=== PATIENT | female | born 1965 | race American Indian/Alaskan Native ===

== ENCOUNTER 2017-01-22 07:30 | Outpatient (CLI) | payer BC ==
--- NOTE | 2017-01-22 11:37 | XRay Report ---
RIGHT KNEE: Pain The bony architecture is intact without evidence of fracture or dislocation. No significant soft tissue abnormality is seen. IMPRESSION: Normal right knee.
== END 2017-01-22 07:31 | disposition home or self-care (01) ==
LOC: XRAY 07:30
PROVIDERS: ATTEND Orthopaedic Surgery
DX: M25.561 Pain in right knee (principal)

== ENCOUNTER 2017-02-05 09:58 | Outpatient (CLI) | payer BC ==
--- NOTE | 2017-02-06 15:48 | Magnetic Resonance Report ---
MRI of the right knee. History: Decreased range of motion, pain, swelling. Procedure: A multisequence multiplanar study was performed. Findings: There is a linear horizontal signal abnormality in the posterior horn of the medial meniscus. The anterior horn appears normal. The lateral meniscus is unremarkable. There is a moderate-sized joint effusion. The cruciate and collateral ligaments appear normal. No signal abnormality is are seen in the bony structures. Impression: Horizontal tear of the posterior horn of the meniscus with moderate joint effusion.
== END 2017-02-05 09:59 | disposition home or self-care (01) ==
LOC: MRI 09:58
PROVIDERS: ATTEND Orthopaedic Surgery
DX: M25.561 Pain in right knee (principal); M25.461 Effusion, right knee
CPT/HCPCS: 73721

== ENCOUNTER 2017-03-06 08:52 | Day surgery (SDC) | payer BC ==
[~2017-03-06 08:52] MED LIST: ANCEF/STERILE WATER 2 GM/20 ML IV NR
--- NOTE | 2017-03-06 10:06 | Anesthesia Consultation ---
Anesthesia Consult and Med Hx Date of service: 03/06/17 - Airway Anesthetic Teeth Evaluation: Good ROM Head & Neck: Adequate Mental/Hyoid Distance: Adequate Mallampati Class: Class I Intubation Access Assessment: Good - Pulmonary Exam CTA: Yes - Cardiac Exam Cardiac Exam: RRR - Pre-Operative Health Status ASA Pre-Surgery Classification: ASA3 Proposed Anesthetic Plan: General - Pre-Anesthesia Comment Pre-Anesthesia Comments: Stress induced anaphalactic rxn, use epipen once - Pulmonary Hx Smoking: Yes (1-2 cigarettes per week, occasional due to stress) Hx Asthma: No COPD: No Hx Pneumonia: No Hx Sleep Apnea: No (UMA PRE SCREEN LOW RISK) - Cardiovascular System Hx Hypertension: No Hx Angina: Yes (March. full cardiac work up & cleared. r/t gerd) - Central Nervous System Hx Neuromuscular Disorder: No Hx Psychiatric Problems: No - Endocrine Hx End Stage Renal Disease: No Hx Insulin Dependent Diabetes: No Hx Non-Insulin Dependent Diabetes: No Hx Thyroid Disease: No - Hematic Hx Anemia: No Hx Sickle Cell Disease: No - Other Systems Hx Alcohol Use: Yes (occ) Hx Cancer: No Hx Obesity: Yes (BMI 42.8) - Additional Comments Anesthesia Medical History Comments: NAC
--- NOTE | 2017-03-06 10:06 | Anesthesia Day of Surgery ---
Anesthesia Day of Surgery - Day of Surgery Patient Examined: Yes Patient H&P Reviewed: Yes Patient is NPO: Yes
[2017-03-06 10:14] LABS: Bilirubin,Urine NEG (Negative); Blood,Urine NEG (Negative); Ketones,Urine NEG (Negative); Leukocyte Esterase,Urine NEG (Negative); Mucus,Urine 1+ /HPF; Nitrite,Urine NEG (Negative); Protein,Urine <15 mg/dL mg/dL (Negative)
[2017-03-06 10:30] LABS: Basophils % (Auto) 0.8 % (0.0-1.8); Eosinophils % (Auto) 1.4 % (0.0-4.3); Hematocrit 40.1 % (30.3-42.9); Hemoglobin 12.8 gm/dl (10.1-14.3); Mean Corpuscular HGB Conc 32 % (30-34); Mean Corpuscular Volume 76 fl (79-97); Platelet Count 266 K/mm3 (140-440); Red Blood Count 5.26 M/mm3 (3.65-5.03); Red Cell Distribution Width 16.4 % (13.2-15.2); White Blood Count 6.5 K/mm3 (4.5-11.0)
[2017-03-06 10:43] LABS: Alanine Aminotransferase 11 units/L (7-56); Albumin 3.8 g/dL (3.9-5); Albumin/Globulin Ratio 1.1 %; Alkaline Phosphatase 97 units/L (35-129); Anion Gap 15 mmol/L; BUN/Creatinine Ratio 18.57; Blood Urea Nitrogen 13 mg/dL (7-17); Calcium 8.5 mg/dL (8.4-10.2); Carbon Dioxide 23 mmol/L (22-30); Chloride 103.8 mmol/L (98-107); Glucose 93 mg/dL (65-100); Potassium 4.2 mmol/L (3.6-5.0); Sodium 138 mmol/L (137-145); Total Protein 7.3 g/dL (6.3-8.2)
[2017-03-06 10:51] LABS: Mean Corpuscular Hemoglobin 24 pg (28-32)
[2017-03-06] MEDS ORDERED: PEPCID PO NR (11:00)
[2017-03-06] MEDS ORDERED: LACTATED RINGERS 1,000 ML IV SCH (11:00)
[2017-03-06] MEDS ORDERED: VERSED IV NR (11:00)
--- NOTE | 2017-03-06 11:00 | XRay Report ---
ROUTINE CHEST, TWO VIEWS: HISTORY: Preoperative evaluation. The trachea, heart, mediastinal contour, lung yarbrough and bony thorax are unremarkable. IMPRESSION: Unremarkable chest x-ray.
[2017-03-06] MEDS ORDERED: SUBLIMAZE ONE (11:50)
[2017-03-06] MEDS ORDERED: XYLOCAINE MPF 2% ONE (11:50)
[2017-03-06] MEDS ORDERED: DIPRIVAN 10 MG/ML IV ONE (11:50)
[2017-03-06] MEDS ORDERED: MARCAINE-EPI/PF 0.5%-1:200,000 INFILTRATI ONE (12:01)
[2017-03-06] MEDS ORDERED: ZOFRAN ONE (12:40)
[2017-03-06] MEDS ORDERED: DECADRON ONE (12:41)
[2017-03-06] MEDS ORDERED: DEPO-MEDROL ONE (13:10)
[2017-03-06] MEDS ORDERED: DEPO-MEDROL INTRA-ARTI ONE (13:14)
[2017-03-06] MEDS ORDERED: MARCAINE-EPI/PF 0.5%-1:200,000 IJ ONE (13:14)
[2017-03-06] MEDS: DILAUDID IV PRN ×7 (13:50→14:45)
[2017-03-06] MEDS ORDERED: DILAUDID ONE (13:51)
--- NOTE | 2017-03-06 14:12 | Procedure Note ---
Date of procedure: 03/06/17 Pre-op diagnosis: lateral meniscus tear right knee Post-op diagnosis: same Procedure: Arthroscopy right knee with partial lateral meniscectomy and abrasion chondroplasty Indications A 51-year-old female who complains of right knee pain and swelling off and on for the last 2 months patient tried conservative treatment with no relief in her symptoms a preoperative MRI scan was done showing a possible tear of the lateral meniscus Procedure Patient was brought to the OR and placed in the or table in supine position following induction and intubation by anesthesia the patient's right lower extremity was placed in a leg pulliam was followed by routine prep and drape. Timeout procedure was done to identify the patient and the proper operative site. Stab wounds made in the routine fashion INTRODUCTION OF ARTHROSCOPE AND INSUFFLATION OF THE JOINT WITH NORMAL SALINE SOLUTION EXAMINATION REVEALED THE PATIENT TO HAVE THE 3 CHONDROMALACIA OF THE LATERAL TIBIAL PLATEAU ALL WITH A RADIAL FLAP TEAR NOTED IN THE LATERAL MENISCUS THE OTHER COMPARTMENTS WERE EXPLORED THAT BEING THE MEDIAL AND THE PATELLOFEMORAL JOINT BUT MAINLY HER SYMPTOMS PREOPERATIVELY POINTED TO THE LATERAL MENISCUS AND HERE IN THIS LOCATION WE FOUND TREATED BOTH THE meniscal tear and the chondromalacia. Combination of shaver and basket forceps were used to debride the articular and meniscal cartilage back to healthier appearing tissue. All illness the wound was copiously irrigated the stab wounds were repaired using 3-0 nylon 80 mg of Depo-Medrol along with 10 mL of Marcaine were injected postoperatively into the knee joint dressings were applied the patient tolerated the procedure there complications and sent to postanesthesia recovery in a stable condition Anesthesia: MARGARET Surgeon: JESENIA MOSQUEDA Estimated blood loss: minimal Pathology: none Specimen disposition: discarded Condition: stable Disposition: PACU
[2017-03-06] MEDS ORDERED: NORCO 7.5/325 PO PRN (14:14)
--- NOTE | 2017-03-06 14:42 | Post Anesthesia Evaluation ---
- Post Anesthesia Evaluation Patient Participated: Yes Airway Patent: Yes Stable Respiratory Function: Yes Nausea/Vomiting: No Temp > 96.8F: Yes Pain Manageable: Yes Adequeate Hydration: Yes Anesthesia Complications: No
[2017-03-06] MEDS ORDERED: TORADOL IV ONE (15:00)
[2017-03-06 17:01] VITALS: BP 113/71
== END 2017-03-06 16:39 | disposition home or self-care (01) ==
LOC: OR 08:52
PROVIDERS: ATTEND Orthopaedic Surgery
DX: S83.281A Other tear of lateral meniscus, current injury, right knee, initial encounter (principal); F17.210 Nicotine dependence, cigarettes, uncomplicated; E66.9 Obesity, unspecified; Z68.41 Body mass index [BMI] 40.0-44.9, adult; Z72.89 Other problems related to lifestyle; X58.XXXA Exposure to other specified factors, initial encounter
CPT/HCPCS: 29881; 36415; 71020; 80053; 81001; 81025; 85025; 97161; J0690; J1030; J1100; J1170; J1885; J2250; J2405; J2704; J3010; J7120

== ENCOUNTER 2017-03-08 05:08 | Emergency (ER) | payer BC ==
[2017-03-08 05:25] VITALS: BP 155/85
[2017-03-08 06:31] LABS: Basophils % (Auto) 0.6 % (0.0-1.8); Eosinophils % (Auto) 0.2 % (0.0-4.3); Hematocrit 37.8 % (30.3-42.9); Hemoglobin 11.8 gm/dl (10.1-14.3); Mean Corpuscular HGB Conc 31 % (30-34); Mean Corpuscular Volume 77 fl (79-97); Platelet Count 277 K/mm3 (140-440); Red Blood Count 4.94 M/mm3 (3.65-5.03); Red Cell Distribution Width 16.1 % (13.2-15.2); White Blood Count 8.4 K/mm3 (4.5-11.0)
[2017-03-08 06:33] LABS: Mean Corpuscular Hemoglobin 24 pg (28-32)
[2017-03-08 06:40] LABS: Anion Gap 12 mmol/L; Blood Urea Nitrogen 12 mg/dL (7-17); Calcium 8.9 mg/dL (8.4-10.2); Carbon Dioxide 28 mmol/L (22-30); Chloride 102.7 mmol/L (98-107); Glucose 97 mg/dL (65-100); Potassium 4.7 mmol/L (3.6-5.0); Sodium 138 mmol/L (137-145)
--- NOTE | 2017-03-08 10:06 | Emergency Department Report ---
ED General Adult HPI - General Chief complaint: Wound/Laceration Stated complaint: RT KNEE PAIN W/ BLEEDING Time Seen by Provider: 03/08/17 09:55 Source: patient Mode of arrival: Ambulatory Limitations: Physical Limitation - History of Present Illness Initial comments: Symptoms a 51-year-old female who is here status post knee surgery on . She complains of swelling and pain to the knee. She noticed some drainage from the wound this morning. No fevers chills nausea vomiting. She has some pain with flexion. She has been using crutches and pain medications. -: Gradual Location: lower extremity Radiation: non-radiation Severity scale (0 -10): 4 Quality: aching Consistency: constant Improves with: other (removal of dressing) Associated Symptoms: denies other symptoms. denies: chest pain, cough, nausea/ vomiting, syncope, weakness Treatments Prior to Arrival: none - Related Data Home Medications Medication Instructions Recorded Confirmed Last Taken Fluticasone Propionate [Flonase] 1 spray INNOSTRIL PRN PRN 07/25/14 03/06/17 09:00 Levocetirizine Dihydrochloride 1 tab PO PRN PRN 07/25/14 03/06/17 02/28/17 09:00 [Xyzal] Ranitidine HCl [Ranitidine] 1 tab PO PRN PRN 07/25/14 03/06/17 02/28/17 09:00 Epipen (Nf) 0.3 mg SUB-Q PRN PRN 08/21/16 03/05/17 07/09/16 Ibuprofen [Motrin] 800 mg PO Q8HR PRN 03/05/17 03/06/17 03/03/17 08:00 Montelukast [Singulair] 10 mg PO PRN PRN 03/05/17 03/06/17 02/28/17 09:00 Previous Rx's Medication Instructions Recorded Last Taken Type HYDROcodone/APAP 7.5-325 [[place] 1 each PO Q6HR PRN #30 tablet 03/06/17 Unknown Rx 7.5-325 mg TAB] oxyCODONE /ACETAMINOPHEN [Percocet 1 tab PO Q6HR PRN #20 tablet 03/08/17 Unknown Rx 5/325] Allergies Allergy/AdvReac Type Severity Reaction Status Date / Time bacitracin AdvReac Anaphylaxis Verified 07/25/14 13:23 [From Neosporin ([id number])] bacitracin zinc AdvReac Anaphylaxis Verified 07/25/14 13:23 [From Neosporin ([id number])] neomycin sulfate AdvReac Anaphylaxis Verified 07/25/14 13:23 [From Neosporin ([id number])] polymyxin B AdvReac Anaphylaxis Verified 07/25/14 13:23 [From Neosporin ([id number])] shellfish derived AdvReac Anaphylaxis Verified 07/25/14 13:23 Sulfa (Sulfonamide AdvReac Anaphylaxis Verified 07/25/14 13:23 Antibiotics) ED Review of Systems ROS: Stated complaint: RT KNEE PAIN W/ BLEEDING Other details as noted in HPI Comment: All other systems reviewed and negative Constitutional: no symptoms reported Musculoskeletal: as per HPI, joint swelling. denies: back pain, myalgia ED Past Medical Hx - Past Medical History Hx Hypertension: No Hx Congestive Heart Failure: No Hx Diabetes: No Hx GERD: Yes Hx Sickle Cell Disease: No Hx Asthma: No Hx COPD: No Hx HIV: No - Surgical History Hx Cholecystectomy: Yes Hx Appendectomy: Yes Hx Breast Surgery: Yes (BREAST REDUCTION) Additional Surgical History: GASTRIC BYPASS - Social History Smoking Status: Never Smoker Substance Use Type: None - Medications Home Medications: Home Medications Medication Instructions Recorded Confirmed Last Taken Type Fluticasone Propionate [Flonase] 1 spray INNOSTRIL PRN PRN 07/25/14 03/06/17 09:00 History Levocetirizine Dihydrochloride 1 tab PO PRN PRN 07/25/14 03/06/17 02/28/17 09: 00 History [Xyzal] Ranitidine HCl [Ranitidine] 1 tab PO PRN PRN 07/25/14 03/06/17 02/28/17 09:00 History Epipen (Nf) 0.3 mg SUB-Q PRN PRN 08/21/16 03/05/17 07/09/16 History Ibuprofen [Motrin] 800 mg PO Q8HR PRN 03/05/17 03/06/17 03/03/17 08:00 History Montelukast [Singulair] 10 mg PO PRN PRN 03/05/17 03/06/17 02/28/17 09:00 History HYDROcodone/APAP 7.5-325 [[place] 1 each PO Q6HR PRN #30 tablet 03/06/17 Unknown Rx 7.5-325 mg TAB] oxyCODONE /ACETAMINOPHEN [Percocet 1 tab PO Q6HR PRN #20 tablet 03/08/17 Unknown Rx 5/325] ED Physical Exam - General Limitations: Physical Limitation General appearance: alert - Head Head exam: Present: atraumatic - Eye Eye exam: Present: normal appearance - Respiratory Respiratory exam: Present: normal lung sounds bilaterally. Absent: respiratory distress - Cardiovascular Cardiovascular Exam: Present: regular rate, normal rhythm. Absent: systolic murmur, diastolic murmur, rubs, gallop - Extremities Exam Extremities exam: Present: full ROM (there is no evidence of infection redness erythema over the joint), tenderness, normal capillary refill, joint swelling. Absent: pedal edema - Neurological Exam Neurological exam: Present: alert, altered, oriented X3 - Skin Skin exam: Present: warm, dry, intact ED Course Vital Signs 03/08/17 03/08/17 05:17 10:15 Temperature 98.3 F Pulse Rate 71 Respiratory 14 18 Rate Blood Pressure 155/85 Blood Pressure 155/85 [Left] O2 Sat by Pulse 100 Oximetry ED Medical Decision Making - Lab Data Result diagrams: 03/08/17 06:07 03/08/17 06:07 - Medical Decision Making Patient is 51-year-old female with recent arthroscopic knee surgery here with complaint of knee pain. No evidence of infection. There is some slight drainage from the wound itself but I do not suspect any sort of infection. She is mildly tender over the joint itself. White count normal. Plan ultrasound for DVT. Negative DVT study. Discussed case with Dr. Anaya and plan to have patient follow-up as as scheduled outpatient Likely hematoma into the joint. Critical care attestation.: If time is entered above; I have spent that time in minutes in the direct care of this critically ill patient, excluding procedure time. ED Disposition Clinical Impression: Hemarthrosis following procedure Disposition: TO HOME OR SELFCARE Is pt being admited?: No Does the pt Need Aspirin: No Condition: Stable Instructions: Knee Pain (ED) Additional Instructions: Follow-up with Dr. Anaya as planned on Friday. Prescriptions: oxyCODONE /ACETAMINOPHEN [Percocet 5/325] 1 tab PO Q6HR PRN #20 tablet PRN Reason: Pain Referrals: PRIMARY CARE, [Primary Care Provider] - 3-5 Days
[2017-03-08] MEDS ORDERED: MORPHINE IM ONE (10:16)
== END 2017-03-08 13:31 | disposition home or self-care (01) ==
LOC: ED 05:08
DX: M25.061 Hemarthrosis, right knee (principal); K21.9 Gastro-esophageal reflux disease without esophagitis; Z90.49 Acquired absence of other specified parts of digestive tract; Z98.890 Other specified postprocedural states; Z88.8 Allergy status to other drugs, medicaments and biological substances
CPT/HCPCS: 36415; 80048; 85025; 93971; 96372; 99284; J2270

== ENCOUNTER 2017-09-10 07:07 | Outpatient (CLI) | payer BC ==
--- NOTE | 2017-09-10 09:44 | Mammography Report ---
BILATERAL MAMMOGRAM with CAD: HISTORY:Cancer screening. Comparison study is dated June 26, 2016. FINDINGS: The breasts are almost entirely fat (<25% glandular). No mass, distortion, suspicious calcification, or skin change is seen. IMPRESSION: Negative mammogram. There is no mammographic evidence of malignancy. RECOMMENDATION: Follow-up per ACS guidelines. BI-RADS CATEGORY: 1 = Negative ACR BI-RADS MAMMOGRAPHIC CODES: 0 = Needs additional imaging evaluation; 1 = Negative; 2 = Benign; 3 = Probably benign; 4 = Suspicious; 5 = Malignant; 6 = Known biopsy-proven malignancy COMMENT: 1. Dense breast tissue, i.e., adenosis, fibrocystic changes, etc., may obscure an underlying neoplasm. 2. Approximately 10% of cancers are not detected with mammography. 3. A negative mammography report should not delay biopsy if a clinically suspicious mass is present. COMMENT: Patient follow-up letters are generated in [employer].
== END 2017-09-10 07:08 | disposition home or self-care (01) ==
LOC: MAMMO 07:07
PROVIDERS: ATTEND Obstetrics & Gynecology
DX: Z12.31 Encounter for screening mammogram for malignant neoplasm of breast (principal); I10 Essential (primary) hypertension
CPT/HCPCS: 77067

== ENCOUNTER 2017-11-19 10:28 | Outpatient (CLI) | payer BC ==
--- NOTE | 2017-11-19 12:30 | XRay Report ---
Left knee 3 views: History: Pain in left knee. Findings: Narrowing of the medial and patellofemoral compartment region. Sclerotic articular surfaces with degenerative changes. No fracture. No joint effusion or soft tissue calcification. Impression: Degenerative changes left knee.
== END 2017-11-19 10:29 | disposition home or self-care (01) ==
LOC: XRAY 10:28
PROVIDERS: ATTEND Orthopaedic Surgery
DX: M17.12 Unilateral primary osteoarthritis, left knee (principal)

== ENCOUNTER 2017-12-12 07:40 | Outpatient (CLI) | payer BC ==
[2017-12-12 08:04] LABS: Basophils # (Auto) 0.1 K/mm3 (0.0-0.1); Basophils % (Auto) 1.3 % (0.0-1.8); Eosinophils # (Auto) 0.1 K/mm3 (0.0-0.4); Eosinophils % (Auto) 1.3 % (0.0-4.3); Hematocrit 35.5 % (30.3-42.9); Hemoglobin 11.5 gm/dl (10.1-14.3); Lymphocytes # (Auto) 1.8 K/mm3 (1.2-5.4); Lymphocytes % (Auto) 34.5 % (13.4-35.0); Mean Corpuscular HGB Conc 32 % (30-34); Mean Corpuscular Volume 74 fl (79-97); Monocytes # (Auto) 0.3 K/mm3 (0.0-0.8); Monocytes % (Auto) 6.5 % (0.0-7.3); Platelet Count 227 K/mm3 (140-440); Red Blood Count 4.78 M/mm3 (3.65-5.03); Red Cell Distribution Width 16.1 % (13.2-15.2)
[2017-12-12 08:20] LABS: Mean Corpuscular Hemoglobin 24 pg (28-32)
[2017-12-12 08:31] LABS: Alanine Aminotransferase 8 units/L (7-56); Albumin 3.9 g/dL (3.9-5); BUN/Creatinine Ratio 11; Blood Urea Nitrogen 9 mg/dL (7-17); Chol/HDL Ratio 2.28 %; HDL Cholesterol 56 mg/dL (40-59); Hemolysis Index 2; LDL Cholesterol,Direct 73 mg/dL (50-130)
== END 2017-12-12 07:41 | disposition home or self-care (01) ==
LOC: LAB 07:40
DX: Z00.01 Encounter for general adult medical examination with abnormal findings (principal); R79.89 Other specified abnormal findings of blood chemistry; I10 Essential (primary) hypertension; K21.9 Gastro-esophageal reflux disease without esophagitis; Z79.899 Other long term (current) drug therapy
CPT/HCPCS: 36415; 80053; 80061; 84443; 85025

== ENCOUNTER 2018-06-09 10:41 | Outpatient (CLI) | payer BC ==
[2018-06-09 11:21] LABS: INR 2.64 (0.87-1.13)
== END 2018-06-09 10:42 | disposition home or self-care (01) ==
LOC: LAB 10:41
PROVIDERS: ATTEND Internal Medicine
DX: R79.1 Abnormal coagulation profile (principal); I10 Essential (primary) hypertension; K21.9 Gastro-esophageal reflux disease without esophagitis; Z88.1 Allergy status to other antibiotic agents
CPT/HCPCS: 36415; 85610

== ENCOUNTER 2018-06-24 10:54 | Outpatient (CLI) | payer BC ==
--- NOTE | 2018-06-30 14:08 | Vascular Lab Report ---
Left Lower Extremity Venous Duplex Study: Reason for Exam: Left lower extremity deep venous thrombosis. Comments on the Right: A limited duplex study was done of the proximal veins of the right lower extremity. All veins visualized are freely compressible without evidence of internal echogenicity. Flow is spontaneous and phasic throughout. No evidence of acute or chronic thrombus is seen in any of the vessels visualized. Comments on the Left: A stent is partially visible in the external iliac and common femoral veins. There is chronic recanalized thrombus extending from the deep femoral vein into the popliteal and tibial veins as well as a gastrocnemius vein. The remaining veins visualized are freely compressible without evidence of internal echogenicity. Spontaneous and phasic flow is present proximally. Impression: Evidence of an iliac vein stent on the left. Chronic recanalized thrombus involving the deep femoral vein as well as the popliteal and tibial veins of the left lower extremity. No evidence of acute deep venous thrombosis in the left lower extremity.
== END 2018-06-24 10:55 | disposition home or self-care (01) ==
LOC: VAS 10:54
PROVIDERS: ATTEND Radiology Diagnostic Radiology
DX: I26.99 Other pulmonary embolism without acute cor pulmonale (principal); I80.02 Phlebitis and thrombophlebitis of superficial vessels of left lower extremity; I10 Essential (primary) hypertension; K21.9 Gastro-esophageal reflux disease without esophagitis; E66.9 Obesity, unspecified; F17.290 Nicotine dependence, other tobacco product, uncomplicated; Z90.49 Acquired absence of other specified parts of digestive tract

== ENCOUNTER 2018-09-11 10:52 | Outpatient (CLI) | payer BC ==
--- NOTE | 2018-09-11 14:39 | Mammography Report ---
BILATERAL DIGITAL SCREENING MAMMOGRAM with CAD: 09/11/18 10:52:00 CLINICAL: Routine screening. COMPARISON:09/10/17 FINDINGS: The breasts are almost entirely fatty. No mass, architectural distortion or suspicious calcifications. IMPRESSION: No mammographic evidence of malignancy. BI-RADS CATEGORY: 1 - - Negative RECOMMENDATION: Routine mammographic screening in one year. COMMENT: Patient follow-up letters are generated by our [employer] application.
== END 2018-09-11 10:53 | disposition home or self-care (01) ==
LOC: MAMMO 10:52
PROVIDERS: ATTEND Internal Medicine
DX: Z12.31 Encounter for screening mammogram for malignant neoplasm of breast (principal); I10 Essential (primary) hypertension; E66.9 Obesity, unspecified; K21.9 Gastro-esophageal reflux disease without esophagitis; M19.90 Unspecified osteoarthritis, unspecified site; Z90.49 Acquired absence of other specified parts of digestive tract; Z87.891 Personal history of nicotine dependence
CPT/HCPCS: 77067

== ENCOUNTER 2018-09-23 06:59 | Outpatient (CLI) | payer BC ==
[2018-09-23 13:32] LABS: Blood Urea Nitrogen 11 mg/dL (7-17)
--- NOTE | 2018-09-23 15:47 | Cat Scan Report ---
CTA CHEST INDICATION: Shortness of breath. History of PE. COMPARISON: 05/25/2018 chest CTA. FINDINGS: Chest CTA performed following intravenous administration of 100 cc of Omnipaque 350. Rotational MIP's also obtained. Though peak pulmonary arterial opacification somewhat technically suboptimal, there appears to have been interval resolution of large right main pulmonary arterial filling defect. Though pulmonary arterial branch opacification somewhat suboptimal, no definite suspicious filling defects suspected, to the extent assessed. No aortic aneurysm or dissection. Patent central airway. No size significant adenopathy. Normal heart size. No effusions. Normal imaged thyroid. Clear lungs. Nonspecific distal esophageal wall prominence/thickening, not excluded for gastroesophageal reflux and/or hiatal hernia, amongst others. Numerous upper abdominal postsurgical changes, including cholecystectomy and gastric bypass again noted. Few nonobstructing left upper renal calcifications measuring up to 0.4 cm as on axial image 115, series 2. Mild multilevel spinal degenerative changes spurring, including lower cervical. A subtle 5 cm posterior mid back subcutaneous lipoma may again be noted, axial image 60. CONCLUSION: 1. No acute significant chest CT abnormality on this somewhat limited exam with resolution of pulmonary embolism since May 2018, in so far assessed. 2. Various other findings as in the imaged upper abdomen. Thank you for the opportunity to participate in this patient's care.
--- NOTE | 2018-09-28 09:47 | Vascular Lab Report ---
FINAL REPORT EXAM: US ARTERIAL LOWER EXTREMITY UNILATERAL LEFT HISTORY: Follow-up lower extremity deep venous thrombosis. TECHNIQUE: Grayscale, color flow and Doppler waveform imaging of the deep venous structures of the l eft lower extremity was performed Comparison: Venous ultrasound lower extremities dated May 25, 2018. FINDINGS: Left lower extremity: There is evidence of a stent in the distal left external iliac vein. There is demonstration of normal compression and normal phasic flow in the deep venous structures of the left lower extremity from the common femoral vein to the popliteal vein. There is demonstration of flow in the greater saphenous vein near the confluence with the common femo ral vein. There is demonstration of flow in the posterior tibial vein IMPRESSION: 1. No ultrasound evidence of acute deep venous thrombosis left lower extremity. 2. Stent in the distal left external iliac vein.
== END 2018-09-23 07:00 | disposition home or self-care (01) ==
LOC: CT 06:59
PROVIDERS: ATTEND Radiology Diagnostic Radiology
DX: I80.02 Phlebitis and thrombophlebitis of superficial vessels of left lower extremity (principal); I26.99 Other pulmonary embolism without acute cor pulmonale; M47.812 Spondylosis without myelopathy or radiculopathy, cervical region; I10 Essential (primary) hypertension; Z87.891 Personal history of nicotine dependence
CPT/HCPCS: 36415; 71275; 82565; 84520; 93971; Q9967

== ENCOUNTER 2018-09-30 07:22 | Outpatient (CLI) | payer BC | END 2018-09-30 07:23 | disposition home or self-care (01) | LOC: ECHO 07:22 | PROVIDERS: ATTEND Internal Medicine | DX: I11.9 Hypertensive heart disease without heart failure (principal); Z90.49 Acquired absence of other specified parts of digestive tract; E66.9 Obesity, unspecified; K21.9 Gastro-esophageal reflux disease without esophagitis; M19.90 Unspecified osteoarthritis, unspecified site; Z86.718 Personal history of other venous thrombosis and embolism; Z87.891 Personal history of nicotine dependence | CPT/HCPCS: 93306 ==

== ENCOUNTER 2018-10-19 12:57 | Outpatient (CLI) | payer BC ==
--- NOTE | 2018-10-19 23:00 | XRay Report ---
FINAL REPORT EXAM: XR KNEE 4+V RT HISTORY: WEIGHTBEARING AP AND PA VIEWS, LATERAL AND [place] ON TABLE, PAIN TECHNIQUE: Four views of the right knee PRIORS: None. FINDINGS: The bones are normally aligned and mineralized. The medial and lateral joint spaces appear well-prese rved. There is moderate narrowing of the patellofemoral joint with associated osteophyte formation. T here is no evidence of acute fracture. The soft tissues are unremarkable. IMPRESSION: Osteoarthrosis of the patellofemoral joint. No evidence of acute fracture or subluxation.
--- NOTE | 2018-10-20 06:43 | Magnetic Resonance Report ---
FINAL REPORT PROCEDURE: MR LE JOINT RT WO CON TECHNIQUE: Magnetic resonance imaging of the RIGHT knee was performed using standard pulse sequences HISTORY: PAIN IN KNEE COMPARISON: No prior studies are available for comparison. FINDINGS: Medial meniscus: Normal. Lateral meniscus: There is a tear through the anterior horn of lateral meniscus extending to the supe rior articulating surface. Anterior cruciate ligaments: No signal of the anterior cruciate ligament is noted on this study, this is consistent with chronic tear of the anterior cruciate ligament. Posterior cruciate ligament: There is increased signal in the superior insertion of the posterior cru ciate ligament consistent with partial tear. Medial collateral ligament: Normal. Iliotibial band: Normal. Lateral collateral ligamentous complex: Normal. Medial patellar retinaculum: Normal. Lateral patellar retinaculum: Normal. Marrow signal: Normal. Chondral defects: None. Patellofemoral joint: Normal. Joint effusion: None. Mass lesion: None. Popliteal cyst: None. Soft tissues: Normal. IMPRESSION: There is a tear in the anterior horn of the lateral meniscus extending to the superior articulating s urface. A partial tear of the superior insertion of the posterior cruciate ligament is identified. No signal in the anterior cruciate ligament region is noted. This may be consistent with a chronic te ar previous injury, correlation with clinical history is recommended.
== END 2018-10-19 12:58 | disposition home or self-care (01) ==
LOC: MRI 12:57
PROVIDERS: ATTEND Orthopaedic Surgery
DX: S83.282A Other tear of lateral meniscus, current injury, left knee, initial encounter (principal); M17.11 Unilateral primary osteoarthritis, right knee; I10 Essential (primary) hypertension; E66.9 Obesity, unspecified; K21.9 Gastro-esophageal reflux disease without esophagitis; M19.90 Unspecified osteoarthritis, unspecified site; Z90.49 Acquired absence of other specified parts of digestive tract; Z87.891 Personal history of nicotine dependence; X58.XXXA Exposure to other specified factors, initial encounter; Y93.89 Activity, other specified; Y92.89 Other specified places as the place of occurrence of the external cause; Y99.8 Other external cause status
CPT/HCPCS: 73721; 93970

== ENCOUNTER 2019-03-10 07:29 | Outpatient (CLI) | payer BC ==
--- NOTE | 2019-03-10 14:01 | Vascular Lab Report ---
DUPLEX DOPPLER LOWER EXTREMITY VEINS, BILATERAL INDICATION: PERSONAL HISTORY OF OTHER VENOUS THROMBOSIS AND EMBOLISM. TECHNIQUE: Duplex doppler imaging was performed through the veins of both lower extremities using venous dean gamal and other maneuvers. COMPARISON: No relevant prior imaging study available. FINDINGS: Right Common femoral vein: Negative. Right Superficial femoral vein: Negative. Right Popliteal vein: Negative. Right Calf veins: Negative. Left Common femoral vein: Negative. Left Superficial femoral vein: Negative. Left Popliteal vein: Negative. Left Calf veins: Negative. Additional findings: None.. IMPRESSION: 1. No sonographic evidence for DVT in either lower extremity. Signer Name: Ernesto Noriega Jr, MD Signed: 03/10/2019 1:56 PM Workstation Name: [id number]
== END 2019-03-10 07:30 | disposition home or self-care (01) ==
LOC: VAS 07:29
PROVIDERS: ATTEND Radiology Diagnostic Radiology
DX: Z86.718 Personal history of other venous thrombosis and embolism (principal); I10 Essential (primary) hypertension; J45.909 Unspecified asthma, uncomplicated; K21.9 Gastro-esophageal reflux disease without esophagitis; E66.9 Obesity, unspecified
CPT/HCPCS: 93970

== ENCOUNTER 2019-06-11 02:26 | Emergency (ER) | payer BC ==
[2019-06-11] MEDS ORDERED: oxyCODONE /ACETAMINOPHEN 5-325MG TAB PO ONE (03:01)
--- NOTE | 2019-06-11 03:09 | Emergency Department Report ---
ED Lower Extremity HPI - General Chief Complaint: Extremity Problem,Nontraumatic Stated Complaint: RIGHT KNEE & CALF PAIN Time Seen by Provider: 06/11/19 02:48 Source: patient Mode of arrival: Ambulatory Limitations: No Limitations - History of Present Illness Initial Comments: Mrs. Tracey is a 54 yo female with hx of PE, DVT, HTN who presnts with right knee and calf pain for one week. She had a fall while out of town. She twisted her right knee. Conidering recent travel and similar pain with previous LLE DVT, she is concerned for new R DVT. She is on a maintenance dose of Eliquis 2.5 mg BID. Follow[address] by Dr. Madsen interventionalist. She has been grieving the loss of her sister. She buiried her sister on Friday 5 days ago. In October, MRI Right knee obtained: Lateral meniscus tear, partial tear of PCL MD Complaint: knee injury, fall, other (right calf pain severe) -: Gradual, days(s) (5) Injury: Knee: Right Severity: severe Severity scale (0 -10): 10 Improves With: rest Context: fall Associated Symptoms: ambulatory, other (pain) - Related Data Home Medications Medication Instructions Recorded Confirmed Last Taken Fluticasone Propionate [Flonase] 1 spray INNOSTRIL PRN PRN 07/25/14 05/26/18 03/03/17 09:00 Levocetirizine Dihydrochloride 1 tab PO PRN PRN 07/25/14 05/26/18 02/28/17 09:00 [Xyzal] raNITIdine HCl [Zantac 300 MG TAB] 1 tab PO PRN PRN 07/25/14 05/26/18 02/28/17 09:00 EPINEPHrine [Epipen] 0.3 mg IJ DAILY PRN 08/21/16 05/26/18 07/09/16 Ibuprofen [Motrin 800 MG tab] 800 mg PO Q8HR PRN 03/05/17 05/26/18 03/03/17 08:00 Montelukast [Singulair] 10 mg PO PRN PRN 03/05/17 05/26/18 02/28/17 09:00 Previous Rx's Medication Instructions Recorded Last Taken Type ALBUTEROL Inhaler(NF) [VENTOLIN 2 puff IH QID PRN #1 inha 05/31/18 Unknown Rx Inhaler(NF)] Apixaban [Eliquis] 5 mg PO Q12H #60 tablet 05/31/18 Unknown Rx Apixaban [Eliquis] 10 mg PO Q12HR #9 tablet 05/31/18 Unknown Rx HYDROcodone/APAP 5-325 [[place] 1 each PO Q6H PRN #20 tablet 05/31/18 Unknown Rx 5-325 mg TAB] Losartan [Cozaar] 25 mg PO QDAY #30 tablet 05/31/18 Unknown Rx oxyCODONE /ACETAMINOPHEN [Percocet 1 tab PO Q6HR PRN #10 tablet 06/11/19 Unknown Rx 5/325] Allergies Allergy/AdvReac Type Severity Reaction Status Date / Time bacitracin AdvReac Anaphylaxis Verified 07/25/14 13:23 [From Neosporin ([id number])] bacitracin zinc AdvReac Anaphylaxis Verified 07/25/14 13:23 [From Neosporin ([id number])] neomycin sulfate AdvReac Anaphylaxis Verified 07/25/14 13:23 [From Neosporin ([id number]-hdc-[id number])] polymyxin B AdvReac Anaphylaxis Verified 07/25/14 13:23 [From Neosporin (kaa-vgq-htyzr)] shellfish derived AdvReac Anaphylaxis Verified 07/25/14 13:23 Sulfa (Sulfonamide AdvReac Anaphylaxis Verified 07/25/14 13:23 Antibiotics) ED Review of Systems ROS: Stated complaint: RIGHT KNEE & CALF PAIN Other details as noted in HPI Comment: All other systems reviewed and negative Constitutional: denies: fever, malaise Respiratory: denies: shortness of breath Cardiovascular: denies: chest pain ED Past Medical Hx - Past Medical History Previous Medical History?: Yes Hx Hypertension: Yes Hx Congestive Heart Failure: No Hx Diabetes: No Hx GERD: Yes Hx Sickle Cell Disease: No Hx Arthritis: Yes Hx Asthma: Yes Hx COPD: No Hx HIV: No Additional medical history: DVT on left leg. and PE - Surgical History Past Surgical History?: Yes Hx Cholecystectomy: Yes Hx Appendectomy: Yes Hx Breast Surgery: Yes (Breasts reduction) Additional Surgical History: GASTRIC BYPASS, thrombectomy(2018) - Social History Smoking Status: Current Some Day Smoker Substance Use Type: None - Medications Home Medications: Home Medications Medication Instructions Recorded Confirmed Last Taken Type Fluticasone Propionate [Flonase] 1 spray INNOSTRIL PRN PRN 07/25/14 05/26/18 03/03/17 09:00 History Levocetirizine Dihydrochloride 1 tab PO PRN PRN 07/25/14 05/26/18 02/28/17 09:00 History [Xyzal] raNITIdine HCl [Zantac 300 MG TAB] 1 tab PO PRN PRN 07/25/14 05/26/18 02/28/17 09:00 History EPINEPHrine [Epipen] 0.3 mg IJ DAILY PRN 08/21/16 05/26/18 07/09/16 History Ibuprofen [Motrin 800 MG tab] 800 mg PO Q8HR PRN 03/05/17 05/26/18 03/03/17 08:00 History Montelukast [Singulair] 10 mg PO PRN PRN 03/05/17 05/26/18 02/28/17 09:00 Hi story ALBUTEROL Inhaler(NF) [VENTOLIN 2 puff IH QID PRN #1 inha 05/31/18 Unknown Rx Inhaler(NF)] Apixaban [Eliquis] 5 mg PO Q12H #60 tablet 05/31/18 Unknown Rx Apixaban [Eliquis] 10 mg PO Q12HR #9 tablet 05/31/18 Unknown Rx HYDROcodone/APAP 5-325 [[place] 1 each PO Q6H PRN #20 tablet 05/31/18 Unknown Rx 5-325 mg TAB] Losartan [Cozaar] 25 mg PO QDAY #30 tablet 05/31/18 Unknown Rx oxyCODONE /ACETAMINOPHEN [Percocet 1 tab PO Q6HR PRN #10 tablet 06/11/19 Unknown Rx 5/325] ED Physical Exam - General Limitations: No Limitations General appearance: alert, in no apparent distress - Head Head exam: Present: atraumatic, normocephalic - Eye Eye exam: Present: normal appearance - ENT ENT exam: Present: mucous membranes moist - Neck Neck exam: Present: normal inspection, full ROM - Respiratory Respiratory exam: Present: normal lung sounds bilaterally. Absent: respiratory distress, wheezes, rales, rhonchi - Cardiovascular Cardiovascular Exam: Present: regular rate, normal rhythm, normal heart sounds. Absent: systolic murmur, diastolic murmur, rubs, gallop - GI/Abdominal GI/Abdominal exam: Present: soft, normal bowel sounds. Absent: distended, tenderness, guarding, rebound - Extremities Exam Extremities exam: Present: full ROM, normal capillary refill, other (2+ DP pulse). Absent: tenderness, pedal edema, joint swelling, calf tenderness - Neurological Exam Neurological exam: Present: alert, oriented X3 - Psychiatric Psychiatric exam: Present: normal affect, normal mood - Skin Skin exam: Present: warm, dry, intact, normal color. Absent: rash ED Course Vital Signs 06/11/19 06/11/19 02:33 03:02 Temperature 97.6 F 97.8 F Pulse Rate 90 85 Respiratory 16 12 Rate Blood Pressure 175/100 Blood Pressure 149/83 [Left] O2 Sat by Pulse 100 100 Oximetry ED Lower Extremity MDM - Radiology Data Radiology results: report reviewed Right knee: Mild tricompartment degenerative arthrosis NAP according to radiology impression - Medical Decision Making right knee and right calf pain DDX: knee sprain, DVT, DJD, neurovascularly intact without evidence of infection. No indication of pulmonary embolism with normal vital signs tachycardia. No chest pain or dyspnea. Understandably with history of saddle pulmonary embolus and left lower extremity DVT, Mrs. Tracey is concerned for new DVT. She is also quite upset due to the of her sister. Unfortunately vascular ultrasound is not available. I advised Mrs. Tracey to increase Eliquis to treatment dose of 5 mg twice a day. She is welcome to return to the emergency department and daytime hours for vascular US. Otherwise she will see her vascular interventionalist Dr. Madsen next available appointment. She has a previously arranged appointment on Friday. I have ordered outpatient duplex ultrasound of the right lower extremity. Patient understands to return to the imaging department to have study performed. Right knee: Mild tricompartment degenerative arthrosis I have prescribed 10 tablets of Percocet Critical care attestation.: If time is entered above; I have spent that time in minutes in the direct care of this critically ill patient, excluding procedure time. ED Disposition Clinical Impression: Right knee pain, Right calf pain, Right knee DJD, History of pulmonary embolism, History of DVT (deep vein thrombosis) Disposition: TO HOME OR SELFCARE Is pt being admited?: No Does the pt Need Aspirin: No Condition: Stable Instructions: Arthralgia (ED) Additional Instructions: Please return to the imaging department for ultrasound of the right lower extremity. Order has been entered electronically into the system. Please return to the ER if you develop worsening symptoms especially chest pain or shortness of breath. Please increase your Eliquist dose to the treatment dose of 5 mg twice a day. Prescriptions: oxyCODONE /ACETAMINOPHEN [Percocet 5/325] 1 tab PO Q6HR PRN #10 tablet PRN Reason: Pain Referrals: JANET MADSEN MD [Staff Physician] - 3-5 Days Forms: Work/School Release Form(ED)
[2019-06-11] MEDS ORDERED: APIXABAN 2.5 MG TAB PO ONE (03:19)
--- NOTE | 2019-06-11 03:25 | XRay Report ---
RIGHT KNEE 3 VIEW(S) INDICATION / CLINICAL INFORMATION: right knee pain COMPARISON: 10/19/18 FINDINGS: BONES / JOINT(S): No acute fracture or subluxation. Mild tricompartment degenerative arthrosis. SOFT TISSUES: Mild anterior soft tissue swelling, less than that seen on the prior study. ADDITIONAL FINDINGS: None. Signer Name: Melissa Engle MD Signed: 06/11/2019 3:21 AM Workstation Name: [id number]
[2019-06-11 04:20] VITALS: BP 140/73
== END 2019-06-11 04:10 | disposition home or self-care (01) ==
LOC: ED 02:26
DX: M17.11 Unilateral primary osteoarthritis, right knee (principal); I10 Essential (primary) hypertension; K21.9 Gastro-esophageal reflux disease without esophagitis; M19.90 Unspecified osteoarthritis, unspecified site; J45.909 Unspecified asthma, uncomplicated; F17.200 Nicotine dependence, unspecified, uncomplicated; Z90.49 Acquired absence of other specified parts of digestive tract; Z86.718 Personal history of other venous thrombosis and embolism; Z98.890 Other specified postprocedural states; Z79.899 Other long term (current) drug therapy; Z88.1 Allergy status to other antibiotic agents; Z88.2 Allergy status to sulfonamides; Z88.8 Allergy status to other drugs, medicaments and biological substances
CPT/HCPCS: 99283

== ENCOUNTER 2019-06-11 09:34 | Outpatient (CLI) | payer BC ==
--- NOTE | 2019-06-15 07:44 | Vascular Lab Report ---
DUPLEX DOPPLER LOWER EXTREMITY VEINS, RIGHT INDICATION: RIGHT CALF KNEE PAIN, HX OF PE DVT. TECHNIQUE: Duplex doppler imaging was performed through the veins of the right lower extremity using venous compression and other maneuvers. COMPARISON: No relevant prior imaging study available. FINDINGS: Right Common femoral vein: Negative. Right Superficial femoral vein: Negative. Right Popliteal vein: Negative. Right Calf veins: Negative. The peroneal vein was not seen. Additional findings: Targeted ultrasound images in the right calf area at the site of patient pain de monstrates mild nonspecific subcutaneous edema.. IMPRESSION: No sonographic evidence for DVT in the right lower extremity. Nonspecific edema in the right calf. Signer Name: Ernesto Noriega Jr, MD Signed: 06/15/2019 7:40 AM Workstation Name: [id number]
== END 2019-06-11 09:35 | disposition home or self-care (01) ==
LOC: VAS 09:34
PROVIDERS: ATTEND Emergency Medicine
DX: M25.561 Pain in right knee (principal); Z86.718 Personal history of other venous thrombosis and embolism

== ENCOUNTER 2019-07-12 05:59 | Outpatient (CLI) | payer BC ==
[2019-07-12 14:32] LABS: Hepatitis C Virus Antibody Non-Reactive (NonReactive)
[2019-07-16 07:07] LABS: HIV-1 Antibody Differentiation SEE SCANNED RESULT; HIV-2 Antibody Differentiation SEE SCANNED RESULT
== END 2019-07-12 06:00 | disposition home or self-care (01) ==
LOC: LAB 05:59
PROVIDERS: ATTEND Obstetrics & Gynecology
DX: Z11.3 Encounter for screening for infections with a predominantly sexual mode of transmission (principal); I10 Essential (primary) hypertension; J45.909 Unspecified asthma, uncomplicated; K21.9 Gastro-esophageal reflux disease without esophagitis; F17.200 Nicotine dependence, unspecified, uncomplicated
CPT/HCPCS: 36415; 86592; 86689; 86706; 86803

== ENCOUNTER 2019-10-19 11:22 | Outpatient (CLI) | payer BC ==
[2019-10-19 12:57] LABS: Hematocrit 40.9 % (30.3-42.9); Hemoglobin 13.3 gm/dl (10.1-14.3); Mean Corpuscular HGB Conc 33 % (30-34); Mean Corpuscular Volume 75 fl (79-97); Platelet Count 270 K/mm3 (140-440); Red Blood Count 5.45 M/mm3 (3.65-5.03); Red Cell Distribution Width 16.1 % (13.2-15.2)
[2019-10-19 13:26] LABS: Alanine Aminotransferase 15 units/L (7-56); Albumin 4.1 g/dL (3.9-5); BUN/Creatinine Ratio 23; Blood Urea Nitrogen 18 mg/dL (7-17); Chol/HDL Ratio 2.96 %; HDL Cholesterol 53 mg/dL (40-59); Hemolysis Index 6; LDL Cholesterol,Direct 97 mg/dL (50-130)
[2019-10-22 14:40] LABS: Vitamin D, 25-OH, D2 <4 ng/mL
== END 2019-10-19 11:23 | disposition home or self-care (01) ==
LOC: LAB 11:22
PROVIDERS: ATTEND Internal Medicine
DX: Z00.00 Encounter for general adult medical examination without abnormal findings (principal); Z13.1 Encounter for screening for diabetes mellitus; R53.83 Other fatigue; E78.2 Mixed hyperlipidemia; E11.65 Type 2 diabetes mellitus with hyperglycemia; E55.9 Vitamin D deficiency, unspecified
CPT/HCPCS: 36415; 80053; 80061; 82306; 83036; 84443; 85027

== ENCOUNTER 2020-08-23 06:51 | Outpatient (CLI) | payer BC ==
--- NOTE | 2020-08-23 09:44 | Mammography Report ---
BILATERAL DIGITAL SCREENING MAMMOGRAM WITH CAD HISTORY: Screening mammogram TECHNIQUE: Routine digital mammographic imaging performed. This examination was interpreted with carrie lewis benefit of Computer-aided Detection analysis. COMPARISON: 09/11/2018, 09/10/2017, 06/26/2016 FINDINGS: Breast Density: predominantly fatty breast parenchymal pattern. Digital CC and MLO views demonstrate no mammographic evidence of malignancy. Partially visualized be nign-appearing lymph node in the slightly inferior far posterior right breast on the MLO view. IMPRESSION: No mammographic evidence of malignancy. If the clinical examination remains stable, recommend bilate ral mammogram in approximately one year. BIRADS 1: Negative. FURTHER INFORMATION: According to the [employer], yearly mammograms are recommend ed starting at age 40 and continuing as long as a woman is in good health. Clinical Breast Exams shou ld be part of a periodic health exam-about every 3 years for women in their 20s and 30s and every yea r for women 40 and over. Breast self exam is an option for women starting in their 20s. Any breast ch lucia noted on a breast self exam should be reported promptly to the patient's healthcare provider. Br east MRI is recommended for women with an approximately 20-25% or greater lifetime risk of breast can cer, including women with a strong family history of breast or ovarian cancer and women who have been treated for Hodgkin's disease. A negative Mammography report should not discourage follow up or biopsy of a clinically significant f inding and/or abnormality. Dense breast tissue may obscure small neoplasms. The patient will be entered into a reminder system with a target due date for the next screening mamm ogram. Signer Name: Fito Miramontes MD Signed: 08/23/2020 9:39 AM Workstation Name: [id number]
== END 2020-08-23 06:52 | disposition home or self-care (01) ==
LOC: MAMMO 06:51
PROVIDERS: ATTEND Internal Medicine
DX: Z12.31 Encounter for screening mammogram for malignant neoplasm of breast (principal)
CPT/HCPCS: 77067